=== PATIENT | female | born 1995 | race Caucasian/White ===

== ENCOUNTER 2023-11-15 09:44 | Emergency (ER) | payer MEDICAID, OTHER ==
[~2023-11-15] VITALS: Ht 157.5 cm; Wt 72.6 kg
[2023-11-15 10:01] VITALS: BP 104/68; PULSE 112; RESP 18; TEMP 99.2; O2SAT 98
[2023-11-15 11:09] LABS: FLU A ANTIGEN negative (NEGATIVE); FLU B ANTIGEN negative (NEGATIVE)
[2023-11-15] MEDS: ACETAMINOPHEN EXTRA STRENGTH 500 MG TAB PO ONE (12:26)
[2023-11-15 12:42] LABS: APPEARANCE,URINE SL CLOUDY (CLEAR); BILIRUBIN,URINE 1+ (NEGATIVE); BLOOD, URINE 2+ (NEGATIVE); COLOR,URINE YELLOW (YELLOW); LEUKOCYTE ESTERASE ,URINE 2+ (NEGATIVE); NITRITE, URINE NEGATIVE (NEGATIVE); PROTEIN,URINE NEGATIVE (NEGATIVE); UGLUCOSE NEGATIVE (NEGATIVE); UROBILINOGEN,URINE 0.2 EU/dL (0.2 - 1)
[2023-11-15 13:04] LABS: BACTERIA,URINE 10-30 (MOD) /HPF (None Seen)
[2023-11-15 13:05] LABS: ICTOTEST NEGATIVE (NEGATIVE); SQUAMOUS EPITHELIAL CELL,UR 4-10 (MOD) /LPF (0-3 (FEW))
[2023-11-15] MEDS ORDERED: ACET-10509 PO (13:26)
[2023-11-15] MEDS ORDERED: NITR100C7 PO (13:26)
== END 2023-11-15 13:38 | disposition home or self-care (01) ==
LOC: MED 09:44
DX: N30.00 Acute cystitis without hematuria (principal); J02.9 Acute pharyngitis, unspecified; Z20.822 Contact with and (suspected) exposure to COVID-19; Z79.899 Other long term (current) drug therapy
CPT/HCPCS: 81001; 81025; 87081; 87086; 99283